=== PATIENT | female | born 1985 | race Caucasian/White ===

== ENCOUNTER 2018-01-27 14:41 | Emergency (ER) | payer OTHER ==
--- NOTE | 2018-01-27 14:50 | ED Physician Documentation ---
PD HPI BACK PAIN - Stated complaint Stated Complaint: BACK PX - Chief complaint Chief Complaint: Back Pain - History obtained from History obtained from: Patient - History of Present Illness Timing - onset: How many weeks ago (2 weeks of right lumbar pain without apparent injury. The pain is stated localized in the right paralumbar area. There is no radiation to the abdomen nor legs. There is no lower extremity numbness nor tingling. She has not had any bowel or bladder dysfunction. The pain is worse with range of motion and palpation. She has not had any rash or sores.) Timing - duration: Weeks (2) Timing - details: Gradual onset, Still present, Waxing and waning Location: Lower, Right Quality: Pain, Spasm Associated symptoms: No: Fever, Weakness, Numbness, Incontinent of urine Worsened by: Movement, Twisting, Palpation. No: Lifting Contributing factors: No: Lifting, Twisting, Trauma Similar symptoms before: Has not had sx before Recently seen: Not recently seen Review of Systems Constitutional: denies: Fever, Chills, Myalgias Nose: denies: Rhinorrhea / runny nose, Congestion Throat: denies: Sore throat Respiratory: denies: Cough GI: denies: Abdominal Pain, Nausea, Vomiting, Diarrhea : denies: Dysuria, Frequency, Hematuria Skin: denies: Rash, Lesions Neurologic: denies: Focal weakness, Numbness, Near syncope PD PAST MEDICAL HISTORY - Past Medical History Cardiovascular: None Respiratory: None Endocrine/Autoimmune: None GI: None : Chronic bladder infection HEENT: None Psych: None Musculoskeletal: Chronic back pain Derm: None - Past Surgical History Past Surgical History: No - Present Medications Home Medications: Ambulatory Orders Medication Instructions Recorded Confirmed HYDROcod/ACETAM 5/325 [[place] 5/325] 1 tab PO Q6H PRN #15 tablet 01/27/18 Methocarbamol [Robaxin] 500 mg PO Q6H PRN #25 tablet 01/27/18 Naproxen [Naprosyn] 500 mg PO BID PRN #20 tablet 01/27/18 - Allergies Allergies/Adverse Reactions: Allergies Allergy/AdvReac Type Severity Reaction Status Date / Time Penicillins Allergy Hives Verified 01/27/18 14:47 - Social History Does the pt smoke?: Yes Does the pt drink ETOH?: Yes Does the pt have substance abuse?: No - Immunizations Immunizations are current?: Yes - POLST Patient has POLST: No PD ED PE NORMAL - Vitals Vital signs reviewed: Yes - General General: Alert and oriented X 3, No acute distress, Well developed/nourished - Cardiac Cardiac: RRR, No murmur - Respiratory Respiratory: Clear bilaterally - Abdomen Abdomen: Normal bowel sounds, Soft, Non tender, Non distended - Back Back: No CVA TTP, No spinal TTP (but is tender right paralumbar muscle focally. No rash nor sores. ) - Derm Derm: Normal color, Warm and dry, No rash - Extremities Extremities: No tenderness to palpate, Normal ROM s pain - Neuro Neuro: Alert and oriented X 3, No motor deficit, No sensory deficit, Normal speech Results - Vitals Vitals: Vital Signs - 24 hr 01/27/18 14:45 Temperature 36.8 C Heart Rate 67 Respiratory 18 Rate Blood Pressure 165/92 H O2 Saturation 99 Oxygen O2 Source Room air - Rads (name of study) lumbar spine xray Radiology: Prelim report reviewed, EMP read contemporaneously PD MEDICAL DECISION MAKING - ED course Complexity details: reviewed results, re-evaluated patient, considered differential, d/w patient - Sepsis Event Vital Signs: Vital Signs - 24 hr 01/27/18 14:45 Temperature 36.8 C Heart Rate 67 Respiratory 18 Rate Blood Pressure 165/92 H O2 Saturation 99 Oxygen O2 Source Room air Departure - Departure Disposition: 01 Home, Self Care Clinical Impression: Lumbar back pain Condition: Stable Record reviewed to determine appropriate education?: Yes Instructions: ED Low Back Pain Injury Follow-Up: Christine Sol PA-C [Primary Care Provider] - Prescriptions: HYDROcod/ACETAM 5/325 [[place] 5/325] 1 tab PO Q6H PRN #15 tablet PRN Reason: Pain Methocarbamol [Robaxin] 500 mg PO Q6H PRN #25 tablet PRN Reason: Spasms Naproxen [Naprosyn] 500 mg PO BID PRN #20 tablet PRN Reason: Pain Comments: Heat and gentle range of motion for the back. Use naproxen twice daily for the next 7-10 days. Robaxin muscle relaxant to help with stiffness. Add Tylenol or hydrocodone if needed for pain. Follow-up Friday with your primary care as planned. Hopefully this will be doing a lot better by then.
[2018-01-27] MEDS ORDERED: IBUPROFEN 600 MG TABLET PO STA (15:02)
[2018-01-27] MEDS ORDERED: TRIAMCINOLONE 40 MG/ML VIAL IM STA (15:03)
--- NOTE | 2018-01-27 15:53 | XRAY Report ---
Reason: lumbar pain 3 weeks Procedure Date: 01/27/2018 Accession Number: [id number] / [id number] Procedure: XR - Lumbar Spine 2 View CPT Code: FULL RESULT: EXAM: LUMBOSACRAL SPINE RADIOGRAPHY EXAM DATE: 01/27/2018 03:41 PM. CLINICAL HISTORY: Lumbar pain 3 weeks. COMPARISONS: None. TECHNIQUE: 2 views. FINDINGS: Alignment: Normal. No spondylolisthesis or scoliosis. Bones: Five [id number]-[id number] lumbar vertebral bodies are present. No fractures or bone lesions. Disks: Normal. Disk heights are maintained. Facets: No degenerative changes. Sacroiliac Joints: Unremarkable. Soft Tissues: Normal. The visualized bowel gas pattern is normal. IMPRESSION: Normal lumbar spine radiography. [facility]
[2018-01-27 16:04] VITALS: BP 140/87
== END 2018-01-27 16:04 | disposition home or self-care (01) ==
LOC: ED 14:41
DX: S39.012A Strain of muscle, fascia and tendon of lower back, initial encounter (principal)
CPT/HCPCS: 72100; 96372; 99283; A9270

== ENCOUNTER 2019-01-24 19:48 | Outpatient (CLI) | payer OTHER | END 2019-01-24 19:49 | disposition critical access hospital (66) | LOC: EMS 19:48 | PROVIDERS: ATTEND Surgery | DX: S09.90XA Unspecified injury of head, initial encounter (principal); Y04.2XXA Assault by strike against or bumped into by another person, initial encounter ==

== ENCOUNTER 2019-01-24 21:41 | Emergency (ER) | payer OTHER ==
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
[2019-01-25] MEDS ORDERED: IBUPROFEN 800 MG TABLET PO STA (00:15)
[2019-01-25] MEDS ORDERED: CLINDAMYCIN 150 MG CAPSULE PO STA (00:15)
[2019-01-25 00:24] VITALS: BP 138/90
== END 2019-01-25 00:23 | disposition home or self-care (01) ==
LOC: ED 21:41
DX: T76.11XA Adult physical abuse, suspected, initial encounter (principal); F17.200 Nicotine dependence, unspecified, uncomplicated
CPT/HCPCS: 70450; 70486; 99283; 99284; A9270

== ENCOUNTER 2019-05-02 18:06 | Outpatient (CLI) | payer OTHER | END 2019-05-02 18:07 | disposition critical access hospital (66) | LOC: EMS 18:06 | PROVIDERS: ATTEND Surgery | DX: R06.00 Dyspnea, unspecified (principal); R05 Cough; R07.1 Chest pain on breathing; R11.2 Nausea with vomiting, unspecified | CPT/HCPCS: A0425; A0429 ==

== ENCOUNTER 2019-05-02 18:38 | Emergency (ER) | payer OTHER ==
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
[2019-05-02] MEDS ORDERED: LORazepam 2 MG/ML VIAL IVP STA (19:08)
[2019-05-02] MEDS ORDERED: ONDANSETRON 4 MG/2 ML VIAL IVP STA (19:08)
[2019-05-02 19:30] LABS: BASOPHILS % (AUTO) 0.5 %; EOSINOPHILS # (AUTO) 0.2 10^3/uL (0.0-0.7); EOSINOPHILS % (AUTO) 2.1 %; HGB - HEMOGLOBIN 15.1 g/dL (12.0-16.0); LYMPHOCYTES # (AUTO) 2.2 10^3/uL (1.5-3.5); LYMPHOCYTES % (AUTO) 30.7 %; MEAN CORPUSCULAR HEMOGLOBIN 31.9 pg (27.0-31.0); MEAN CORPUSCULAR HGB CONC 33.7 g/dL (32.0-36.0); MEAN CORPUSCULAR VOLUME 94.7 fL (81.0-99.0); MEAN PLATELET VOLUME 9.3 fL (7.9-10.8); MONOCYTES # (AUTO) 0.6 10^3/uL (0.0-1.0); MONOCYTES % (AUTO) 7.7 %; NEUTROPHILS # (AUTO) 4.3 10^3/uL (1.5-6.6); NEUTROPHILS % (AUTO) 58.7 %; PLT - PLATELET COUNT 196 10^3/uL (130-450); RED BLOOD COUNT 4.73 10^6/uL (4.20-5.40); RED CELL DISTRIBUTION WIDTH 12.3 % (12.0-15.0); WHITE BLOOD COUNT 7.3 x10^3/uL (4.8-10.8)
[2019-05-02 19:40] LABS: ALBUMIN 4.1 g/dL (3.2-5.5); ALBUMIN/GLOBULIN RATIO 1.1 (1.0-2.2); BILIRUBIN,TOTAL 0.6 mg/dL (0.2-1.0); CALCIUM 9.4 mg/dL (8.5-10.3); CREATININE 0.7 mg/dL (0.4-1.0); TOTAL PROTEIN 7.9 g/dL (6.7-8.2)
--- NOTE | 2019-05-02 19:46 | XRAY Report ---
Reason: che3st pain Procedure Date: 05/02/2019 Accession Number: [id number] / [id number] Procedure: XR - Chest 2 View X-Ray CPT Code: 35634 Final Report FULL RESULT: EXAM: CHEST RADIOGRAPHY EXAM DATE: 05/02/2019 07:14 PM. CLINICAL HISTORY: Chest pain. COMPARISON: None. TECHNIQUE: 2 views. FINDINGS: Lungs/Pleura: No focal opacities evident. No pleural effusion. No pneumothorax. Normal volumes. Mediastinum: Heart and mediastinal contours are unremarkable. Other: None. IMPRESSION: Normal 2-view chest radiography. RADIA
[2019-05-02] MEDS ORDERED: IOVERSOL 320 100 ML VIAL IVP ONE ×2 (20:13→20:41)
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
[2019-05-02 21:24] VITALS: BP 136/93
== END 2019-05-02 21:31 | disposition home or self-care (01) ==
LOC: EDUNIT# → ED 18:38
DX: R07.9 Chest pain, unspecified (principal); F10.120 Alcohol abuse with intoxication, uncomplicated; F17.200 Nicotine dependence, unspecified, uncomplicated
CPT/HCPCS: 36415; 71046; 71275; 80053; 80320; 83690; 84484; 85025; 85379; 93005; 96374; 96375; 99284; J2060; Q9967

== ENCOUNTER 2020-12-29 09:14 | Outpatient (CLI) | payer MEDICAID ==
[2020-12-29 14:56] LABS: CALCIUM 9.3 mg/dL (8.5-10.3); CREATININE 0.6 mg/dL (0.4-1.0); POTASSIUM 4.1 mmol/L (3.5-5.0)
== END 2020-12-29 09:15 | disposition home or self-care (01) ==
LOC: LAB.S 09:14
PROVIDERS: ATTEND Family Medicine
DX: E22.2 Syndrome of inappropriate secretion of antidiuretic hormone (principal)
CPT/HCPCS: 36415; 80048; 83930; 83935